=== PATIENT | male | born 1965 | race Caucasian/White ===

== ENCOUNTER 2024-12-21 13:10 | Day surgery (SDC) | payer MEDICAID, SELFPAY ==
--- NOTE | 2024-12-20 10:33 | EKG_ITS ---
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
[2024-12-20 10:43] VITALS: BMI 28.2
[2024-12-20 12:34] LABS: Basophils # (Auto) 0.1 Thou/mm3 (0.0-0.2); Basophils % (Auto) 1 % (0-2.5); Eosinophils # (Auto) 0.4 Thou/mm3 (0.0-0.5); Eosinophils % (Auto) 4 % (0-10); Hematocrit 40.8 % (41.0-53.0); Hemoglobin 13.6 g/dL (13.5-16.0); Immature Granulocytes Auto 0.04 Thou/mm3 (0.00-0.00); Lymphocytes # (Auto) 1.5 Thou/mm3 (1.0-4.8); Lymphocytes % (Auto) 16 % (10-50); Mean Corpuscular HGB Conc 33.3 g/dl (31.0-37.0); Mean Corpuscular Hemoglobin 28.6 pg (25.0-35.0); Mean Corpuscular Volume 86 fL (80-100); Monocytes # (Auto) 0.8 Thou/mm3 (0.0-0.8); Monocytes % (Auto) 8 % (0-12); Neutrophils # (Auto) 6.9 Thou/mm3 (1.8-7.7); Neutrophils % (Auto) 71 % (37-80); Nucleated Red Blood Cell # 0.00 Thou/mm3 (0.00-0.00); Nucleated Red Blood Cell % 0 /100 WBC (0); Platelet Count 288 Thou/mm3 (140-440); RDW Standard Deviation 40.1 fL (35.1-43.9); Red Blood Count 4.75 Miln/mm3 (4.50-5.90); White Blood Count 9.7 Thou/mm3 (3.8-10.6)
[2024-12-20 12:36] LABS: INR 1.0 (0.9-1.3); Partial Thromboplastin Time 30.2 Seconds (22.0-36.0); Prothrombin Time 10.9 Seconds (9.0-12.2)
[2024-12-20 12:44] LABS: Alanine Aminotransferase 15 U/L (10-49); Albumin, Serum 4.6 gm/dL (3.5-5.0); Albumin/Globulin Ratio 1.7 (1.2-2.2); Alkaline Phosphatase 79 U/L (46-116); Anion Gap 11 (7-16); Aspartate Amino Transferase 18 U/L (0-34); BUN/Creatinine Ratio 13 Ratio (12-20); Bilirubin,Total 0.5 mg/dL (0.3-1.2); Blood Urea Nitrogen 21 mg/dL (9-23); Calcium 10.1 mg/dL (8.3-10.6); Calcium (Corrected) 10.1 mg/dL (8.5-10.1); Carbon Dioxide 22.4 mMol/L (20.0-31.0); Chloride 108 mMol/L (98-107); Creatinine (Component) 1.6 mg/dL (0.6-1.3); Estimated Creatinine Clearance 55.6 mL/min (>60); Globulin 2.7 gm/dL (2.3-3.5); Glucose 90 mg/dL (74-106); Osmolality,Calculated 284 (275-295); Potassium 4.5 mMol/L (3.4-5.1); Sodium 141 mMol/L (136-145); Total Protein 7.3 gm/dL (5.7-8.2); eGFR 50 See Note
--- NOTE | 2024-12-20 15:55 | SUR.PREOP ---
Pt notified to come in tomorrow at 1300
[2024-12-21] VITALS (7 sets, daily range): BP systolic 138–154; BP diastolic 80–102; PULSE 74–94; RESP 12–18; TEMP 36.9–37.1; O2SAT 95–97; BMI 28.0
--- NOTE | 2024-12-21 16:15 | XR_ITS ---
EXAMINATION: Left hand 8 views Fluoroscopy Date and time: December 21, 2024, 1859 hours INDICATIONS: Fluoroscopy for removal left hand orthopedic hardware TECHNIQUE AND FINDINGS: 8. Spot AP lateral oblique films of the left hand Final AP and lateral films of the hand no longer demonstrates the orthopedic screw noted on the initial films Fluoroscopy 12 seconds radiation dose 0.2416 mGy IMPRESSION: Successful removal left hand orthopedic hardware
--- NOTE | 2024-12-21 17:15 | PD.SUROPNT ---
Date of Procedure 12/21/24 Pre Op Diagnosis Painful Vane screw left wrist Post Op Diagnosis Same Procedure Removal of the screw from the left wrist Findings Refer dictation Procedure Description Patient was given general anesthesia. Was satisfactory anesthesia achieved a tourniquet was placed on left upper arm. Following that part was thoroughly prepped and draped. After using Esmarch the tourniquet pressure was raised to 250 mmHg Intravenous antibiotics Cipro 400 mg IV was given The robotic screw was then polarized with the help of 2 needles. I skin incision was made over the polarized area. The length of the incision was about 1 inch long. Deeper dissection carried scheduled out. The head of the screw was entangled with the superficial branch of the radial nerve. With blunt and sharp dissection it was freed from that. Following that the screw was removed. And was irrigated with antibiotic solution every 2 to 3 minutes Bleeding vessels were electrocoagulated Closure was done with the help of 3-0 Vicryl in an interrupted fashion It was closed with 3-0 Prolene 10 mL of quarter percent Marcaine was injected To clean the wound with hydrogen peroxide solution a sterile dressing was applied. Tourniquet pressure was released Patient tolerated procedure well. Estimated blood loss 2 to 3 mL. Anesthesia GETA and other Pathology / specimen None Estimated Blood Loss 3 Surgeon Ulysses Dodd MD Surgical Staff Operation Date: 12/21/24 16:30 <No data on this case meets the specified criteria>
--- NOTE | 2024-12-21 17:25 | SUR.PHASEI ---
pt received from OR in recovery bay 1. pt asleep but responds to voice, breathing unlabored on room air. v/s stable. pt dressing to left hand cdi. report received from Cecilio CUNNINGHAM and Dr. Jacome.
[2024-12-21] MEDS: fentaNYL CIT INJ 50 mCg/ML AMP 2ML IVP (17:34)
--- NOTE | 2024-12-21 17:47 | SUR.PHASEI ---
pt able to tolerate ice chips without difficulty swallowing or nausea/vomiting.
--- NOTE | 2024-12-21 18:20 | SUR.PHASEII ---
pt awake and alert, breathing unlabored on room air. v/s stable. pt dressing to left hand cdi. pt able to ambulate to wheelchair with steady gait. d/c instructions given with Mansi over the telephone (child presence), all questions answered. pt d/c via wheelchair with all belongings.
--- NOTE | 2024-12-21 19:51 | ESHP_ITS ---
RE: JIAN DELONG : 1965 DATE OF ADMISSION: 12/21/2024 The patient came to my office on 12/20/2024 for detailed preoperative history and physical examination as per history of presenting illness complaint. Patient came with a history of pain in the left hand. Patient stated that he had a broken bone and a screw was placed about 20-25 years back. Now the x-ray was obtained recently and the screw is coming out. Beside that patient has significant pain. The left hand is swollen. The left distal forearm is swollen. 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 Patient is unable to move the wrist, and also the index and middle finger due to pain. X-ray revealed placement of a screw, which is appears loose and also possible coming out from the bone area. Patient also has avascular necrosis of the scaphoid bone. PAST MEDICAL HISTORY: Patient has history of high blood pressure. Patient also has history of a renal transplant for which he takes medication. PAST SURGICAL HISTORY: Renal transplant. DRUG HISTORY: The patient is on: 1. Gabapentin. 2. Hydrochlorothiazide. 3. Mycophenolate mofetil. 4. CellCept 1000 mg. 5. Prograf. ALLERGIES: NIL KNOWN. FAMILY HISTORY AND SOCIAL HISTORY: Noncontributory in this case. PHYSICAL EXAMINATION: GENERAL: Normal built person. VITAL SIGNS: Pulse is 74 per minute. Blood pressure 140/100. NECK: Soft, supple, no mass felt. Trachea is centrally placed. CARDIOVASCULAR SYSTEM: First and second heart sounds normal. No murmur heard. RESPIRATORY SYSTEM: Bilateral vesicular breath sounds. Chest clear. ABDOMEN: Soft, scaphoid. No mass felt. Bowel sounds present. LEFT HAND: Examination reveals swelling. There is significant tenderness over the base of the thumb. Range of motion of left thumb is restricted and painful. There is swelling of the left hand as well. DIAGNOSTIC DATA: X-ray was obtained earlier, which revealed loose screws and avascular necrosis of the scaphoid bone. Patient wanted to be taken out as it is very painful. I explained to him that pain may also be coming because of the avascular necrosis of the scaphoid bone. Beside that he has other issues with the carpal bones. I explained that I may be able to take out the screws. However this screw was placed almost 20 years back. Sometimes there is some bone growth in the thread and then it may not be possible to take it out. Patient is fully aware of that. Patient is aware that if I am not able to take out the screw I may have to abandon the procedure. I also explained that most likely the pain is coming because of the avascular necrosis and patient may continue having pain. In that case I may have to refer him out to a hand surgeon for possible artificial prosthesis for the bone. No guarantee is given regarding outcome of the procedure and or relief of symptoms. Patient is also on immunosuppressive drugs because of the renal transplant. Those immunosuppressive drugs make him prone for infection. However, the patient is in too much pain and he wants to take chances and he wants to proceed with the operative procedure. No guarantee is given about the outcome and/or pain relief or functional outcome and patient is fully aware of that. Accordingly surgery is booked for 12/21/2024. Patient is also cleared for surgical procedure. DT: 16:41:52 TT: 19:50:00 Ref: [id number] - TID: [id number]
== END 2024-12-21 18:20 | disposition home or self-care (01) ==
PROVIDERS: Anesthesiology; PCP Family Medicine; Referring Provider Orthopaedic Surgery; Visit Provider Orthopaedic Surgery
PROC: (CPT 20680; principal; 2024-12-21 16:30)
DX: T84.84XA Pain due to internal orthopedic prosthetic devices, implants and grafts, initial encounter (principal); Z01.810 Encounter for preprocedural cardiovascular examination; M87.842 Other osteonecrosis, left hand; Z94.0 Kidney transplant status
CPT/HCPCS: 20680; 36415; 76000; 80048; 80053; 85025; 85610; 85730; 93005; A4649; J1100; J1580; J2371; J2704; J2765; J3010; J3490; J0665